=== PATIENT | female | born 1950 | race Caucasian/White ===

== ENCOUNTER 2017-11-16 10:57 | Emergency (ER) | payer MEDICARE, BC ==
[2017-11-16 11:14] VITALS: BP 130/80
--- NOTE | 2017-11-16 11:47 | UC ---
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 and I started taking mucinex which loosened up the mucous. Now I occasionally bring up green stuff... I also irritated left side of my tongue" after dental work last week. LEFT tonsil has spot/bumps x4 days. Denies fever/chills. Taking tylenol prn." Tmax 99 range. left throat pain last night was 9-10/10, but now down to 6. worse w/ tallking a lot. Tongue pain much improved w/ dental guard that dentist gave her. Cough is minimal, no wheezing. no sinus pain. no nasal congestion. - History of Current Complaint Chief Complaint: UCGeneralIllness Stated Complaint: COLD SYMPTOMS,ORAL/TONSIL COMPLAINT Time Seen by Provider: 11/16/17 11:28 - Allergies/Home Medications Allergies/Adverse Reactions: Allergies Allergy/AdvReac Type Severity Reaction Status Date / Time NSAIDs Allergy See Comment Verified 11/16/17 11:02 Home Medications: Home Medications Atorvastatin* [Lipitor 40 MG*] 40 mg PO QPM 11/16/17 [History Confirmed 11/16/17 ] BuPROPion XL* [Bupropion XL*] 300 mg DAILY 11/16/17 [History Confirmed 11/16/17] Doxepin (NF) 50 mg BEDTIME 11/16/17 [History Confirmed 11/16/17] Escitalopram (NF) [Lexapro 10 mg (NF)] 10 mg DAILY 11/16/17 [History Confirmed 11/16/17] Lansoprazole CAP (NF) [Prevacid CAP (NF)] 1 cap DAILY 11/16/17 [History Confirmed 11/16/17] Levothyroxine TAB* [Synthroid TAB*] 50 mcg DAILY 11/16/17 [History Confirmed ] clonazePAM TAB(*) [Klonopin TAB(*)] 0.5 - 1 tab TID PRN 11/16/17 [History Confirmed 11/16/17] PMH/Surg Hx/FS Hx/Imm Hx Previously Healthy: Yes Endocrine History: Thyroid Disease Psychological History: Anxiety, Depression - Surgical History Surgical History: Yes Surgery Procedure, Year, and Place: Hysterectomy. Cartilage removed from RIGHT knee. Bilat shoulder - Social History Alcohol Use: Occasionally Substance Use Type: None Smoking Status (MU): Never Smoked Tobacco - Immunization History Most Recent Influenza Vaccination: 2017 Review of Systems Constitutional: Negative Skin: Negative Eyes: Negative ENT: Sore Throat Respiratory: Cough Cardiovascular: Negative Gastrointestinal: Negative Genitourinary: Negative Motor: Negative Neurovascular: Negative Musculoskeletal: Negative Neurological: Negative Psychological: Negative Is Patient Immunocompromised?: No All Other Systems Reviewed And Are Negative: Yes Physical Exam Triage Information Reviewed: Yes Appearance: Well-Appearing, No Pain Distress, Well-Nourished - very pleasant, good historian. Vital Signs: Initial Vital Signs Temp 98.7 F 11/16/17 11:06 Pulse 90 11/16/17 11:06 Resp 24 11/16/17 11:06 BP 130/80 11/16/17 11:06 Pulse Ox 97 11/16/17 11:06 Vital Signs Reviewed: Yes Eye Exam: Normal ENT: Positive: Hearing grossly normal, TMs normal, Other - left tonsil with 2-3 mm white lesion. Negative: Nasal congestion, Nasal drainage Dental Exam: Normal Neck exam: Normal Neck: Positive: Supple, Nontender, No Lymphadenopathy Respiratory: Positive: Lungs clear, Normal breath sounds, No respiratory distress, No accessory muscle use. Negative: Crackles, Rhonchi, Stridor, Wheezing Cardiovascular Exam: Normal Cardiovascular: Positive: RRR, No Murmur, Pulses Normal Abdominal Exam: Normal Abdomen Description: Positive: Nontender, Soft Musculoskeletal Exam: Normal Neurological Exam: Normal Psychological Exam: Normal Skin Exam: Normal UC Diagnostic Evaluation - Laboratory O2 Sat by Pulse Oximetry: 97 Respiratory Course/Dx - Course Course Of Treatment: rapid strep negative. no s/s of bacterial infection. she is appreciative of this. - Differential Dx/Diagnosis Differential Diagnosis/HQI/PQRI: Bronchitis, Laryngitis, Sinusitis, Other - URI Provider Diagnoses: pharyngitis, viral URI Discharge - Discharge Plan Condition: Stable Disposition: HOME Patient Education Materials: Pharyngitis (ED) Referrals: Joaquina Funez PA [Primary Care Provider] - 4 Days Additional Instructions: The strep test was negative. Please make sure to follow up with your PCP if symptoms increase or persist and not resolve.
== END 2017-11-16 12:32 | disposition home or self-care (01) ==
LOC: UCCORT 10:57
DX: J06.9 Acute upper respiratory infection, unspecified (principal); J02.9 Acute pharyngitis, unspecified; Z88.6 Allergy status to analgesic agent; E07.9 Disorder of thyroid, unspecified; F41.9 Anxiety disorder, unspecified; F32.9 Major depressive disorder, single episode, unspecified
CPT/HCPCS: 87651; 99201; G0463

== ENCOUNTER 2018-02-09 11:21 | Emergency (ER) | payer MEDICARE, BC ==
--- NOTE | 2018-02-09 13:00 | UC ---
Lower Extremity/Ankle HPI - HPI Summary HPI Summary: 68 female presents to with complaints of a bruise on top of right foot, that is also a little swollen and was painful yesterday however is not anymore unless touching it. Pain and discoloration started last night when she got home after wearing compression stockings. No PMHx other than GERD and depression/ anxiety. Had one DVT while ~ 40 years ago. Is not on blood thinners, hormone replacement, no recent travel or prolonged bed rest. Does not smoke cigarettes. No known injury or trauma. Is able to walk and bear weight without difficulty. States her right calf is also slightly swollen and she is concerned for DVT. Took tylenol last night with some relief - History of Current Complaint Chief Complaint: UCLowerExtremity Stated Complaint: RIGHT FOOT Time Seen by Provider: 02/09/18 12:39 Hx Obtained From: Patient Hx Last Menstrual Period: MENOPAUSAL Onset/Duration: Sudden Onset, Lasting Days - 1 Severity Initially: Mild Severity Currently: None Pain Intensity: 0 Pain Scale Used: 0-10 Numeric Aggravating Factor(s): Other - touch Alleviating Factor(s): Nothing Able to Bear Weight: Yes Feet (Multiple View): 1 - bruising/erythema - Risk Factors DVT Risk Factors: Prior DVT - Allergies/Home Medications Allergies/Adverse Reactions: Allergies Allergy/AdvReac Type Severity Reaction Status Date / Time NSAIDS (Non-Steroidal Allergy See Comment Verified 02/09/18 12:30 Anti-Inflamma Home Medications: Home Medications Acetaminophen 650 mg 02/09/18 [History] Cholecalciferol (Vitamin D3) [Vitamin D3] 02/09/18 [History] Multivit-Min/Folic Acid/Vit K1 [Multi For Her 50 Plus Softgel] 02/09/18 [ History] PMH/Surg Hx/FS Hx/Imm Hx - Additional Past Medical History Additional PMH: Denies DM, HTN, vascular disease, high cholesterol and asthma GI/ History: Gastroesophageal Reflux Psychological History: Anxiety, Depression - Surgical History Surgical History: Yes Surgery Procedure, Year, and Place: Hysterectomy. Cartilage removed from RIGHT knee. Bilat shoulder. DORSAL STIMULATER IMPLANTED AND REMOVED - Family History Known Family History: Positive: Cardiac Disease - Social History Alcohol Use: Occasionally Substance Use Type: None Smoking Status (MU): Never Smoked Tobacco - Immunization History Most Recent Influenza Vaccination: 2017 Review of Systems Constitutional: Negative Skin: Bruising Respiratory: Negative Cardiovascular: Negative Musculoskeletal: Edema - right foot, Myalgia All Other Systems Reviewed And Are Negative: Yes Physical Exam Triage Information Reviewed: Yes Appearance: Well-Appearing, No Pain Distress, Well-Nourished Vital Signs: Initial Vital Signs Temp 97.6 F 02/09/18 12:17 Pulse 85 02/09/18 12:17 Resp 18 02/09/18 12:17 BP 128/82 02/09/18 12:17 Pulse Ox 100 02/09/18 12:17 Vital Signs Reviewed: Yes Eyes: Positive: Conjunctiva Clear ENT: Positive: Normal ENT inspection, Hearing grossly normal, Pharynx normal Neck: Positive: Supple Respiratory: Positive: Chest non-tender, Lungs clear, Normal breath sounds, No respiratory distress, No accessory muscle use Cardiovascular: Positive: RRR, No Murmur, Pulses Normal - 1+ pedal b/l and confirmed with US strong pedal pulse b/l, Brisk Capillary Refill - <2 sec Musculoskeletal: Positive: Strength Intact, ROM Intact, Edema @ - slight edema over right anterior foot, right calf measuring 36cm versus left 35cm Neurological: Positive: Alert, Muscle Tone Normal Skin: Positive: Other - circular contusion, bruising/erythema over anterior right foot with some edema,approximately 2cm wide/length mild tenderness to touch, normal temperature. no open wounds. rest of skin exam normal Diagnostics - Radiology right foot Xray Interpretation: Positive (See Comments) - soft tissue swelling, no acute fracture. if symptoms persist recommend repeat imaging. Radiology Interpretation Completed By: Radiologist right lower ext US Xray Interpretation: No Acute Changes - NO EVIDENCE OF DEEP VENOUS THROMBOSIS IS IDENTIFIED. Radiology Interpretation Completed By: Radiologist Re-Evaluation - Re-Evaluation First Eval Re-Evaluation Time: 13:47 Change: Unchanged - updated on xray results, waiting on ultrasound. patient feeling fine, no complaints. Lower Extremity Course/Dx - Course Course Of Treatment: xray and us obtianed due to physical exam findings.xray negative other than soft tissue swelling. negative US for DVT. appears to be a contusion. unknown etiology, possibly from injury or bumping it. recommend tylelnol RICE. follow up with PCP. aware of worsening signs and symptoms to watch out for. no other concerns. normal vitals and physical exam otherwise, does not appear to be an infection or GOUT due to findings and history. - Differential Dx/Diagnosis Differential Diagnosis/HQI/PQRI: Arthritis, Contusion, Sprain, Strain Provider Diagnoses: right foot contusion Discharge - Discharge Plan Condition: Good Disposition: HOME Patient Education Materials: Foot Contusion (ED) Referrals: Joaquina Funez PA [Primary Care Provider] - Additional Instructions: Continue tylenol as needed for any discomfort, if needed. Apply ice, rest and elevate. Any new or worsening symptoms please seek medical attention as we discussed. Follow up with PCP for recheck in 3 days, sooner if new or worsening symptoms.
--- NOTE | 2018-02-09 13:35 | RAD ---
INDICATION: Right foot injury. TECHNIQUE: 3 views of the right foot were obtained. FINDINGS: There is dorsal soft tissue swelling over the forefoot. There is moderate hallux valgus deformity. No fracture is seen. IMPRESSION: SOFT TISSUE SWELLING, NO FRACTURE IS SEEN. IF THE PATIENT'S SYMPTOMS PERSIST RECOMMEND FOLLOW-UP IMAGING.
--- NOTE | 2018-02-09 14:06 | RAD ---
Indication: Right foot edema and bruise. Duplex Doppler sonography of the deep venous system of the right lower extremity deep venous system was performed. Bilaterally the common femoral veins appear patent and compressible. Right proximal greater saphenous vein, proximal deep femoral vein, femoral vein, popliteal vein, posterior tibial veins and peroneal veins appear patent and compressible. IMPRESSION: NO EVIDENCE OF DEEP VENOUS THROMBOSIS IS IDENTIFIED.
[2018-02-09 14:19] VITALS: BP 132/79
== END 2018-02-09 14:34 | disposition home or self-care (01) ==
LOC: UCCORT 11:21
DX: S90.31XA Contusion of right foot, initial encounter (principal); X58.XXXA Exposure to other specified factors, initial encounter; Y93.9 Activity, unspecified; Y92.9 Unspecified place or not applicable; K21.9 Gastro-esophageal reflux disease without esophagitis; F41.9 Anxiety disorder, unspecified; F32.9 Major depressive disorder, single episode, unspecified; Z88.6 Allergy status to analgesic agent; Z86.718 Personal history of other venous thrombosis and embolism
CPT/HCPCS: 99212; G0463

== ENCOUNTER 2018-12-27 07:39 | Emergency (ER) | payer MEDICARE, BC ==
[2018-12-27 08:10] VITALS: BP 123/77
--- NOTE | 2018-12-27 08:32 | UC ---
Respiratory Complaint HPI - HPI Summary HPI Summary: Pt c/o cough, nasal congestion, chest congestion and wheezing X 4 days. Pt has a hx of asthma. Pt is currently taking clindamycin for dental infection. - History of Current Complaint Stated Complaint: COUGH, CONGESTION Time Seen by Provider: 12/27/18 08:05 Hx Obtained From: Patient Hx Last Menstrual Period: MENOPAUSAL ?: No Onset/Duration: Gradual Onset, Lasting Days, Still Present Timing: Constant Severity Initially: Mild Severity Currently: Moderate Pain Intensity: 0 Character: Cough: Nonproductive Aggravating Factors: Exertion, Deep Breaths, Recumbent Position Alleviating Factors: Nothing Associated Signs And Symptoms: Positive: Fever, Chills, Wheezing, URI, Nasal Congestion Related History: Seasonal Allergies - Risk Factors Pulmonary Embolism Risk Factors: Negative Cardiac Risk Factors: Elevated Lipids Pseudomonas Risk Factors: Chronic Lung Disease - hx of asthma Tuberculosis Risk Factors: Negative - Allergies/Home Medications Allergies/Adverse Reactions: Allergies Allergy/AdvReac Type Severity Reaction Status Date / Time NSAIDS (Non-Steroidal Allergy See Comment Verified 12/27/18 07:58 Anti-Inflamma Home Medications: Home Medications Acetaminophen [Acetaminophen Extra Strength] 500 mg PO Q6H PRN 12/27/18 [ History Confirmed 12/27/18] Acetaminophen [Tylenol Arthritis] 650 mg PO ONCE PRN 12/27/18 [History Confirmed 12/27/18] Clindamycin HCl 300 mg PO Q6H 12/27/18 [History Confirmed 12/27/18] Fluticasone NASAL SPRAY 50MCG* [Flonase NASAL SPRAY 50MCG*] 2 spray BOTH NARES DAILY 12/27/18 [History Confirmed 12/27/18] Guaifenesin/Dextromethorphan [Mucinex Dm ER 600-30 mg Tablet] 1 each PO Q12H PRN 12/27/18 [History Confirmed 12/27/18] Melatonin 3 mg PO BEDTIME 12/27/18 [History Confirmed 12/27/18] Saliva Substitute Combo No.9 [Biotene] 1 liq [place] DAILY 12/27/18 [History Confirmed 12/27/18] guaiFENesin [Mucus Relief Chest Congestion] 200 mg PO Q4H PRN 12/27/18 [History Confirmed 12/27/18] PMH/Surg Hx/FS Hx/Imm Hx Previously Healthy: Yes Endocrine History: Dyslipidemia Cardiovascular History: Cardiac Disease - Surgical History Surgical History: Yes Surgery Procedure, Year, and Place: Hysterectomy. Cartilage removed from RIGHT knee. Bilat shoulder. DORSAL STIMULATER IMPLANTED AND REMOVED - Family History Known Family History: Positive: Cardiac Disease - Social History Occupation: Retired Lives: With Family Alcohol Use: Rare Substance Use Type: None Smoking Status (MU): Never Smoked Tobacco Have You Smoked in the Last Year: No - Immunization History Most Recent Influenza Vaccination: 2017 Vaccination Up to Date: No Review of Systems All Other Systems Reviewed And Are Negative: Yes Constitutional: Positive: Fever, Chills, Fatigue Skin: Positive: Negative Eyes: Positive: Negative ENT: Positive: Sinus Congestion Respiratory: Positive: Cough, Other - wheezing Cardiovascular: Positive: Negative Gastrointestinal: Positive: Negative Genitourinary: Positive: Negative Motor: Positive: Negative Neurovascular: Positive: Negative Musculoskeletal: Positive: Negative Neurological: Positive: Negative Psychological: Positive: Negative Is Patient Immunocompromised?: No Physical Exam Triage Information Reviewed: Yes Appearance: Ill-Appearing Vital Signs: Initial Vital Signs Temp 98.8 F 12/27/18 08:05 Pulse 77 12/27/18 08:05 Resp 20 12/27/18 08:05 BP 123/77 12/27/18 08:05 Pulse Ox 96 12/27/18 08:05 Vital Signs Reviewed: Yes Eye Exam: Normal ENT: Positive: Nasal congestion Dental Exam: Normal Dental: Positive: Other: - currently being treated for dental infection Neck exam: Normal Respiratory: Positive: Wheezing Cardiovascular Exam: Normal Musculoskeletal Exam: Normal Neurological Exam: Normal Psychological Exam: Normal Skin Exam: Normal UC Diagnostic Evaluation - Laboratory O2 Sat by Pulse Oximetry: 96 Respiratory Course/Dx - Differential Dx/Diagnosis Differential Diagnosis/HQI/PQRI: Bronchitis Provider Diagnosis: Viral syndrome, Cough Discharge - Sign-Out/Discharge Documenting (check all that apply): Patient Departure All imaging exams completed and their final reports reviewed: No Studies - Discharge Plan Condition: Stable Disposition: HOME Prescriptions: Albuterol HFA INHALER* [Ventolin HFA Inhaler*] 1 - 2 puff INH Q4H PRN #1 mdi PRN Reason: Sob/Wheezing Benzonatate CAP* [Tessalon 100 MG CAP*] 200 mg PO Q8H PRN #30 cap PRN Reason: Cough predniSONE TAB* [Deltasone 10 MG TAB*] 30 mg PO DAILY #12 tab Patient Education Materials: Viral Syndrome (ED) Referrals: Joaquina Funez PA [Primary Care Provider] - If Needed - Billing Disposition and Condition Condition: STABLE Disposition: Home - Attestation Statements Provider Attestation: Per institutional requirements, I have reviewed the chart, however, I was not consulted specifically or made aware of this patient by the midlevel provider. I did not personally evaluate, interact with , or disposition this patient.
== END 2018-12-27 08:44 | disposition home or self-care (01) ==
LOC: UCCORT 07:39
DX: B34.9 Viral infection, unspecified (principal); R05 Cough; J45.909 Unspecified asthma, uncomplicated; K04.7 Periapical abscess without sinus; Z88.8 Allergy status to other drugs, medicaments and biological substances
CPT/HCPCS: 99212; G0463